=== PATIENT | male | born 1985 | race Caucasian/White ===

== ENCOUNTER 2020-08-17 02:52 | Emergency (ER) | payer BC ==
[~2020-08-17] VITALS: Ht 170.2 cm; Wt 74.8 kg
[2020-08-17] MEDS ORDERED: NEURONTIN 300M300 M2 PO (03:02)
[2020-08-17 03:43] VITALS: BP 144/101
== END 2020-08-17 03:44 | disposition home or self-care (01) ==
LOC: ER 02:52
DX: F10.129 Alcohol abuse with intoxication, unspecified (principal); Z79.899 Other long term (current) drug therapy; Y90.9 Presence of alcohol in blood, level not specified